=== PATIENT | female | born 2000 | race Caucasian/White ===

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

== ENCOUNTER 2018-10-11 23:51 | Emergency (ER) | payer MEDICAID ==
[~2018-10-11] VITALS: Ht 157.5 cm; Wt 68.0 kg
[2018-10-12 00:03] VITALS: BP_SYST 109
[2018-10-12] MEDS ORDERED: cefTRIAXone 1 GM VIAL IM ONE (03:45)
[2018-10-12] MEDS ORDERED: LIDOCAINE 1%, 20 ML MDV 20 ML ONE (03:50)
[2018-10-12 04:17] VITALS: BP_SYST 115
== END 2018-10-12 04:17 | disposition home or self-care (01) ==
LOC: SED 23:51
DX: J02.9 Acute pharyngitis, unspecified (principal)
CPT/HCPCS: 81025; 96372; 99283; J0696; J2001